=== PATIENT | female | born 1940 | race Caucasian/White ===

== ENCOUNTER 2017-11-09 15:36 | Inpatient (IN) | payer MEDICARE ==
[2017-11-09] MEDS ORDERED: HYDROmorphone 1 MG/ML 1 ML SYRINGE IVP PRN (21:29)
[2017-11-09] MEDS ORDERED: TEMAZEPAM 15 MG CAP PO PRN (21:29)
[2017-11-09] MEDS ORDERED: HYDROcodone/APAP 5-325MG 1 EACH TAB PO PRN (21:29)
[2017-11-09] MEDS ORDERED: ALPRAZolam 0.25 MG TAB PO PRN (21:29)
--- NOTE | 2017-11-09 21:51 | XR ---
EXAMINATION TYPE: XR chest 1V portable DATE OF EXAM: 11/09/2017 COMPARISON: NONE HISTORY: Heart failure short of breath TECHNIQUE: Single frontal view of the chest is obtained. FINDINGS: There is no heart failure nor confluent pneumonic infiltrate. There is slight coarsening o f interstitial markings. There are chest leads. There is no sign of pleural effusion. IMPRESSION: Mild fibrotic changes. No heart failure.
[2017-11-09] MEDS: ASPIRIN 81 MG PO SCH (22:09)
[2017-11-09] MEDS ORDERED: ACETAMINOPHEN TAB 325 MG TAB PO PRN (22:12)
[2017-11-09] MEDS ORDERED: ACETAMINOPHEN TAB 325 MG TAB PO STA (22:12)
[2017-11-09 22:50] LABS: Basophils % (A) 0 %; Eosinophils # (A) 0.1 k/uL (0-0.7); Eosinophils % (A) 1 %; HCT 44.9 % (34.0-46.0); HGB 14.9 gm/dL (11.4-16.0); Lymphocytes # (A) 0.8 k/uL (1.0-4.8); Lymphocytes % (A) 10 %; MCH 29.7 pg (25.0-35.0); MCHC 33.2 g/dL (31.0-37.0); MCV 89.3 fL (80.0-100.0); Mean Platelet Volume 7.3; Monocytes # (A) 0.4 k/uL (0-1.0); Monocytes % (A) 4 %; Neutrophils % (A) 84 %; Platelet Count 240 k/uL (150-450); RBC 5.03 m/uL (3.80-5.40); RDW 12.8 % (11.5-15.5); WBC 8.3 k/uL (3.8-10.6)
[2017-11-09 23:06] LABS: ALT 22 U/L (9-52); AST 23 U/L (14-36); Albumin 3.9 g/dL (3.5-5.0); Alkaline Phosphatase 60 U/L (38-126); Anion Gap 12 mmol/L; Blood Urea Nitrogen 15 mg/dL (7-17); Calcium 9.2 mg/dL (8.4-10.2); Carbon Dioxide 21 mmol/L (22-30); Chloride 106 mmol/L (98-107); Glucose 176 mg/dL (74-99); Potassium 3.9 mmol/L (3.5-5.1); Sodium 139 mmol/L (137-145); Total Bilirubin 0.6 mg/dL (0.2-1.3); Total Protein 6.9 g/dL (6.3-8.2)
[2017-11-09] MEDS ORDERED: ENOXAPARIN 80 MG/0.8 ML SYRINGE SQ STA (23:48)
[2017-11-09] MEDS ORDERED: METOPROLOL TARTRATE 50 MG TAB PO STA (23:50)
[2017-11-09] MEDS ORDERED: DILTIAZEM DRIP BOLUS FROM BAG 1 MG SOLN IV ONE (23:51)
[2017-11-10] MEDS: SODIUM CHLORIDE 0.9% 1,000 ML IV SCH ×4 (00:13→20:04)
[2017-11-10] MEDS: DILTIAZEM 50 MG in SODIUM CHLORIDE 0.9% 40 ML IV SCH ×4 (00:28→17:56)
[2017-11-10 06:40] LABS: Basophils % (A) 0 %; Eosinophils # (A) 0.1 k/uL (0-0.7); Eosinophils % (A) 1 %; HCT 41.5 % (34.0-46.0); HGB 13.6 gm/dL (11.4-16.0); Lymphocytes # (A) 2.1 k/uL (1.0-4.8); Lymphocytes % (A) 26 %; MCH 29.1 pg (25.0-35.0); MCHC 32.9 g/dL (31.0-37.0); MCV 88.6 fL (80.0-100.0); Mean Platelet Volume 6.8; Monocytes # (A) 0.7 k/uL (0-1.0); Monocytes % (A) 8 %; Neutrophils # (A) 5.2 k/uL (1.3-7.7); Neutrophils % (A) 63 %; Platelet Count 237 k/uL (150-450); RBC 4.69 m/uL (3.80-5.40); RDW 12.8 % (11.5-15.5); WBC 8.3 k/uL (3.8-10.6)
[2017-11-10] MEDS: PANTOPRAZOLE 40 MG TABLET PO SCH (06:42)
[2017-11-10] MEDS: ASPIRIN 81 MG PO SCH (06:42)
[2017-11-10 06:49] LABS: Potassium 3.8 mmol/L (3.5-5.1)
[2017-11-10] MEDS ORDERED: METOPROLOL TARTRATE 25 MG TAB PO SCH (09:00)
[2017-11-10] MEDS ORDERED: NITROGLYCERIN SL TABS 0.4 MG TAB SUBLINGUAL PRN ×2 (10:14→12:33)
[2017-11-10] MEDS ORDERED: ATORVASTATIN 80 MG TAB PO STA (10:14)
[2017-11-10] MEDS ORDERED: ASPIRIN 325 MG TAB PO STA (10:14)
[2017-11-10] MEDS ORDERED: ALPRAZolam 0.5 MG TAB PO PRN (10:14)
[2017-11-10] MEDS ORDERED: SODIUM CHLORIDE 0.9% 1,000 ML in EMPTY BAG 1 BAG IV ONE (10:14)
[2017-11-10] MEDS ORDERED: VERAPAMIL 2.5 MG/ML 2 ML AMP ONE (11:15)
[2017-11-10] MEDS ORDERED: diphenhydrAMINE 50 MG/ML 1 ML VIAL ONE (11:15)
[2017-11-10] MEDS ORDERED: MIDAZOLAM 2 MG/2 ML VIAL ONE (11:15)
[2017-11-10] MEDS ORDERED: LIDOCAINE 1% INJ 10MG/ML (20 ML MDV) ONE (11:15)
[2017-11-10] MEDS ORDERED: IV FLUID CONTINUATION 1,000 ML IV ONE (11:20)
[2017-11-10] MEDS ORDERED: HEPARIN SODIUM 1,000 UN/ML (10ML VL) ONE (11:23)
[2017-11-10] MEDS ORDERED: diphenhydrAMINE 50 MG/ML 1 ML VIAL IVP ONE (11:25)
[2017-11-10] MEDS ORDERED: LIDOCAINE 1% INJ 10MG/ML (10 ML MDV) SQ ONE (11:28)
[2017-11-10] MEDS ORDERED: MIDAZOLAM 2 MG/2 ML VIAL IVP ONE (11:28)
[2017-11-10] MEDS ORDERED: SODIUM CHLORIDE 0.9% 500 ML IV ONE (11:35)
[2017-11-10] MEDS: VERAPAMIL SYRINGE (5 MG/10 ML) INTRAARTER ONE ×2 (11:35→12:18)
[2017-11-10] MEDS: HEPARIN SODIUM 1,000 UN/ML (10ML VL) IV ONE ×2 (11:45→11:58)
[2017-11-10] MEDS ORDERED: NITROGLYCERIN 1000MCG/10ML SYRINGE INTRACORON ONE (11:48)
[2017-11-10] MEDS ORDERED: ADENOSINE 90 MG in SODIUM CHLORIDE 0.9% 60 ML IVP ONE (11:48)
[2017-11-10] MEDS ORDERED: IOPAMIDOL-250 100ML BTL INTRAARTER ONE (12:12)
[2017-11-10] MEDS ORDERED: IOPAMIDOL-370 100ML BTL INJ ONE (12:13)
[2017-11-10] MEDS ORDERED: CLOPIDOGREL 75 MG TAB PO ONE ×2 (12:18)
[2017-11-10] MEDS ORDERED: CLOPIDOGREL 75 MG TAB ONE (12:18)
[2017-11-10] MEDS ORDERED: IOPAMIDOL-370 50ML BTL INJ ONE (12:22)
[2017-11-10] MEDS ORDERED: ZOLPIDEM 5 MG TAB PO PRN (12:33)
[2017-11-10] MEDS ORDERED: RX INFO: IV CONTRAST WAS GIVEN 1 EACH MISC MISCELLANE PRN (12:33)
[2017-11-10] MEDS ORDERED: MAG HYDROX/AL HYDROX/SIMETH 30 ML CUP PO PRN (12:33)
[2017-11-10] MEDS ORDERED: ATROPINE SULFATE 0.1 MG/ML 10ML SYRINGE IV PRN (12:33)
--- NOTE | 2017-11-10 12:49 | PTCA ---
PERCUTANEOUSTRANS CORORONARY ANGIOGRAPHY DATE OF SERVICE: 11/10/2017 PROCEDURE: 1. Fractional flow reserve assessment of two lesions in mid LAD. 2. PTCA and stenting of two lesions in mid LAD with a drug-eluting stents. PERFORMED BY: Dr. Gayathri Potts. ANESTHESIA: Moderate conscious sedation time was 56 minutes. CLINICAL INFORMATION: Mrs. Chel Red is a 77-year-old lady with chronic atrial fibrillation, was seen and evaluated by Dr. Cooper at [facility] and was brought in for a FFR assessment because of two tandem lesions in the LAD. Stress test revealed anteroapical reversible defect suggestive of ischemia. However, the lesions were borderline on angiography. I reviewed the images and I also thought circumflex had about a 40% to 50% lesion as well. She was advised FFR and if indicated, would proceed with PCI. PROCEDURE NOTE: Under local anesthesia and strict aseptic precautions, a 6-Romansh introducer was placed in the right radial artery. Micropuncture needle technique was used. I used a JL3.4 guide catheter to cannulate the left coronary artery. There was extreme tortuosity in the brachial artery, but I was able to secure a decent guide support. A Verrata wire was used to cross the lesion in the LAD. There were two lesions in the mid LAD, one was before and one was after a diagonal branch. IFR initially revealed about 0.89 and FFR was 0.80 and 0.81. These were borderline numbers. However, the distal lesion was quite hazy and angiographically looked at least 70%. In view of the haziness of the lesion, angiographic unstable appearance and because of anteroapical reversible defect on the stress test and a borderline, if not convincing FFR/IFR measurements, I he made the decision to proceed with intervention. I discussed with the patient the findings and the situation and proceeded to perform PCI. The same wire was used. Without predilatation, a 12 mm long 2.5 caliber stent was deployed in the distal lesion and the same size, 2.5 caliber 12 mm Xience stent in the proximal portion. Excellent angiographic result without complication was achieved. Patient received a total of 7,500 units of heparin and she had already received Lovenox yesterday. She also received 600 mg of Plavix. The sheath was taken out and TR band applied as per protocol and patient was sent to the room in a stable condition. Excellent angiographic result without complication was achieved. Findings were reviewed with the patient and results were reviewed with the patient, but I could not reach any family members. DELMIS / JOSHUA: [id number] /
--- NOTE | 2017-11-10 14:00 | ECHOF ---
Referral Reason:cad MEASUREMENTS -------- HEIGHT: 167.6 cm WEIGHT: 83.5 kg BP: 111/58 RVIDd: 3.3 cm (< 3.3) IVSd: 1.4 cm (0.6 - 1.1) LVIDd: 4.2 cm (3.9 - 5.3) LVPWd: 1.4 cm (0.6 - 1.1) IVSs: 1.5 cm LVIDs: 3.4 cm LVPWs: 1.6 cm LA Diam: 4.3 cm (2.7 - 3.8) LAESV Index (A-L): 43.23 ml/m Ao Diam: 3.5 cm (2.0 - 3.7) AV Cusp: 1.8 cm (1.5 - 2.6) MV EXCURSION: 13.275 mm (> 18.000) MV EF SLOPE: 59 mm/s (70 - 150) EPSS: 0.4 cm RAP: 5.00 mmHg RVSP: 25.15 mmHg FINDINGS -------- Atrial fibrillation. This was a technically good study. The left ventricular size is normal. There is moderate concentric left ventricular hypertrophy. O verall left ventricular systolic function is normal with, an EF between 55 - 60 %. The right ventricle is mildly enlarged. LA is severely dilated >40 ml/m2 The right atrium is normal in size. There is mild aortic valve sclerosis. There is mild aortic regurgitation. The mitral valve leaflets are mildly thickened. Mild mitral annular calcification present. Mild m itral regurgitation is present. Mild tricuspid regurgitation present. Right ventricular systolic pressure is normal at < 35 mmHg. The aortic root size is normal. Normal inferior vena cava with normal inspiratory collapse consistent with estimated right atrial pre ssure of 5 mmHg. There is no pericardial effusion. CONCLUSIONS -------- 1. Atrial fibrillation. 2. This was a technically good study. 3. The left ventricular size is normal. 4. There is moderate concentric left ventricular hypertrophy. 5. Overall left ventricular systolic function is normal with, an EF between 55 - 60 %. 6. The right ventricle is mildly enlarged. 7. LA is severely dilated >40 ml/m2 8. The right atrium is normal in size. 9. There is mild aortic valve sclerosis. 10. There is mild aortic regurgitation. 11. The mitral valve leaflets are mildly thickened. 12. Mild mitral annular calcification present. 13. Mild mitral regurgitation is present. 14. Mild tricuspid regurgitation present. 15. Right ventricular systolic pressure is normal at < 35 mmHg. 16. The aortic root size is normal. 17. Normal inferior vena cava with normal inspiratory collapse consistent with estimated right atrial pressure of 5 mmHg. 18. There is no pericardial effusion. MILL CONTROLLER: Beverley Joya RDCS
[2017-11-10 14:12] VITALS: BMI 29.7
[2017-11-10] MEDS: METOPROLOL TARTRATE 25 MG TAB PO SCH ×2 (16:55→21:46)
[2017-11-10] MEDS ORDERED: ATORVASTATIN 80 MG TAB PO SCH (21:00)
--- NOTE | 2017-11-10 22:57 | P.HPIM ---
History of Present Illness H&P Date: 11/10/17 Chief Complaint: Chest pressure Patient is a 77-year-old female with a past medical history of hypertension, osteoarthritis and is undergoing preoperative evaluation for elective total knee arthroplasty. Patient did have stress test done on 11/01/2017 was abnormal and patient had cardiac catheterization on 11/09/2017 at [facility]. After the stress test patient was told to come back to the hospital if she developed chest pain. Patient says that day before yesterday patient had left-sided chest pain radiating to the left arm associated with some nausea and sweating. Patient initially presented to [facility] that she underwent cardiac catheterization. Patient was subsequently transferred to [facility] for PCI. Patient had cath today and stent 2 were placed. Currently patient denied any complaints of chest pain or shortness of breath. No nausea vomiting or abdominal pain no fever no chills. No headache or dizziness or lightheadedness. Review of Systems Constitutional: Patient denies any fever or chills . No generalized weakness or weight loss. Abdomen: Patient denied nausea vomiting and diarrhea and abdominal pain. Cardiovascular: Patient denies any chest pain or short of breath no palpitations. Respiratory: patient denied any cough is from production. No shortness of breath Neurologic: Patient denied any numbness or tingling headache. Musculoskeletal: Patient denies any complaints of joint swelling or deformity. Skin: Negative Psychiatric: Negative Endocrine: No heat or cold intolerance. No recent weight gain. Genitourinary: No dysuria or hematuria. All other 14 point ROS negative except the above Past Medical History Past Medical History: Atrial Fibrillation, Hypertension, Osteoarthritis (OA) Additional Past Medical History / Comment(s): stress test 11/01/17, past broken lt hip has plate/screws History of Any Multi-Drug Resistant Organisms: None Reported Past Surgical History: Appendectomy, Hernia Repair, Orthopedic Surgery Additional Past Surgical History / Comment(s): 11/09/17 heart cath at [facility] .abd hernia, lt hip sx pt has plate/screws. Past Anesthesia/Blood Transfusion Reactions: No Reported Reaction Additional Past Anesthesia/Blood Transfusion Reaction / Comment(s): clausterphobia Smoking Status: Never smoker - Past Family History Mother Family Medical History: Coronary Artery Disease (CAD) Additional Family Medical History / Comment(s): "heart problems' Father Family Medical History: Cancer Additional Family Medical History / Comment(s): colon ca Medications and Allergies Home Medications Medication Instructions Recorded Confirmed Type Ibuprofen [Motrin Ib] 800 mg PO TID PRN 11/09/17 11/09/17 History Metoprolol Tartrate [Lopressor] 25 mg PO BID 11/09/17 11/09/17 History Allergies Allergy/AdvReac Type Severity Reaction Status Date / Time No Known Allergies Allergy Verified 11/09/17 19:21 Physical Exam Vitals: Vital Signs Temp Pulse Resp BP Pulse Ox 11/10/17 08:00 64 11/10/17 07:50 97.1 F L 64 16 131/92 98 11/10/17 04:00 98.8 F 86 16 111/58 97 11/10/17 00:00 97.8 F 85 16 110/55 94 L 11/09/17 20:00 97.9 F 103 H 16 136/88 94 L Intake and Output 11/09/17 11/10/17 11/10/17 22:59 06:59 14:59 Intake Total 620 100 200 Balance 620 100 200 Intake: Intake, IV Titration 100 200 Amount Sodium Chloride 0.9% 1, 100 200 000 ml @ 100 mls/hr IV . Q10H [facility] Rx#:[id number] Oral 620 Other: Voiding Method Toilet Toilet Weight 84 kg 83.7 kg PHYSICAL EXAMINATION: Patient is lying in the bed comfortably, no acute distress, awake alert and oriented.. HEENT: Normocephalic. Neck is supple. Pupils reactive. Nostrils clear. Oral cavity is moist. Ears reveal no drainage. Neck reveals no JVD, carotid bruits, or thyromegaly. CHEST EXAMINATION: Trachea is central. Symmetrical expansion. Lung ma clear to auscultation and percussion. CARDIAC: Normal S1, S2 with no gallops. No murmurs ABDOMEN: Soft. Bowel sounds normal. No organomegaly. No abdominal bruits. Extremities: reveal no edema. No clubbing or cyanosis Neurologically awake, alert, oriented x3 with well-coordinated movements. No focal deficits noted Skin: No rash or skin lesions. Psychiatric: Coperative. Nonsuicidal Musculoskeletal: No joint swelling or deformity. Normal range of motion. Results CBC & Chem 7: 11/10/17 06:21 11/10/17 06:21 Labs: Abnormal Lab Results - Last 24 Hours (Table) 11/09/17 11/09/17 11/10/17 Range/Units 22:15 22:15 06:21 Lymphocytes # 0.8 L (1.0-4.8) k/uL Chloride 110 H (98-107) mmol/L Carbon Dioxide 21 L (22-30) mmol/L Glucose 176 H 102 H (74-99) mg/dL Thrombosis Risk Factor Assmnt - DVT/VTE Prophylaxis DVT/VTE Prophylaxis: Pharmacologic Prophylaxis ordered - Choose All That Apply Any of the Below Risk Factors Present?: Yes Each Factor Represents 1 point: Obesity (BMI >25) Each Risk Factor Represents 3 Points: Age 75 years or older Other congenital or acquired thrombophilia - If yes, enter type in comment: No Thrombosis Risk Factor Assessment Total Risk Factor Score: 4 Thrombosis Risk Factor Assessment Level: Moderate Risk Assessment and Plan Assessment: Unstable angina. Status post cardiac Catheterization stent placement Recent abnormal stress test on 11/01/2017 Osteoarthritis Hypertension Family history of coronary artery disease DVT prophylaxis Plan: Patient will be continued on aspirin statins Plavix and beta blockers. Continue the telemetry monitoring and cardiology is on board. Further recommendations based on the clinical course. Time with Patient: Greater than 30
[2017-11-11] MEDS: DILTIAZEM 50 MG in SODIUM CHLORIDE 0.9% 40 ML IV SCH ×2 (02:48→11:46)
[2017-11-11] MEDS: SODIUM CHLORIDE 0.9% 1,000 ML IV SCH ×3 (03:56→07:08)
[2017-11-11 06:44] LABS: Basophils % (A) 0 %; Eosinophils # (A) 0.1 k/uL (0-0.7); Eosinophils % (A) 1 %; HCT 37.7 % (34.0-46.0); HGB 12.5 gm/dL (11.4-16.0); Lymphocytes # (A) 1.7 k/uL (1.0-4.8); Lymphocytes % (A) 23 %; MCH 29.5 pg (25.0-35.0); MCHC 33.1 g/dL (31.0-37.0); Mean Platelet Volume 6.8; Monocytes # (A) 0.6 k/uL (0-1.0); Monocytes % (A) 9 %; Neutrophils # (A) 4.6 k/uL (1.3-7.7); Neutrophils % (A) 64 %; Platelet Count 212 k/uL (150-450); RBC 4.24 m/uL (3.80-5.40); RDW 12.6 % (11.5-15.5); WBC 7.1 k/uL (3.8-10.6)
[2017-11-11] MEDS: PANTOPRAZOLE 40 MG TABLET PO SCH (06:59)
[2017-11-11 07:00] LABS: Anion Gap 3 mmol/L; Blood Urea Nitrogen 12 mg/dL (7-17); Calcium 8.6 mg/dL (8.4-10.2); Carbon Dioxide 24 mmol/L (22-30); Chloride 112 mmol/L (98-107); Glucose 95 mg/dL (74-99); Potassium 3.6 mmol/L (3.5-5.1); Sodium 139 mmol/L (137-145)
[2017-11-11] MEDS: METOPROLOL TARTRATE 25 MG TAB PO SCH (08:35)
[2017-11-11] MEDS: ASPIRIN 81 MG PO SCH (08:35)
[2017-11-11] MEDS ORDERED: LOSARTAN 50 MG TAB PO SCH (09:00)
[2017-11-11 10:20] VITALS: RESP 18
[2017-11-11] MEDS ORDERED: CLOPIDOGREL 75 MG TAB PO SCH (12:35)
--- NOTE | 2017-11-11 13:02 | P.PN ---
Subjective Progress Note Date: 11/11/17 This is a 77-year-old female who was transferred here from [facility], after being evaluated there by Dr. Cooper. She underwent a cardiac catheterization and was brought here to undergo FFR assessment because of 2 lesions in the LAD. Patient did undergo FFR was subsequent stenting of the mid LAD. EKG this morning showed normal sinus rhythm with no changes from post-PCI. She denies any chest pain or difficulty in breathing. She's been up ambulating without any difficulty. Patient does have known history of atrial fibrillation as well, she was advised by Dr. Cooper to be discharged home on Plavix and aspirin, and 6 weeks he will start the patient on xarelto 15 mg daily along with the Plavix. An aspirin at that time will be discontinued. Objective - Vital Signs Vital signs: Vital Signs Temp 98.3 F 11/11/17 08:15 Pulse 88 11/11/17 08:15 Resp 18 11/11/17 08:15 BP 109/61 11/11/17 08:15 Pulse Ox 95 11/11/17 08:15 Intake & Output 11/10/17 11/11/17 11/11/17 18:59 06:59 18:59 Intake Total 946.4 120 1040 Balance 946.4 120 1040 Weight 83.7 kg 84.2 kg Intake: IV 386.4 Intake, IV Titration 200 800 Amount Sodium Chloride 0.9% 1, 200 800 000 ml @ 100 mls/hr IV . Q10H [facility] Rx#:[id number] Oral 360 120 240 Other: Voiding Method Toilet # Voids 1 1 - Exam PHYSICAL EXAMINATION: GENERAL: 77-year-old female in no acute distress at the time of my examination HEENT: Head is atraumatic, normocephalic. Pupils equal, round. Sclera anicteric. Conjunctiva are clear. Mucous membranes of the mouth are moist. Neck is supple. There is no elevated jugular venous pressure.] bruit is heard. HEART EXAMINATION: Heart S1 and S2 no murmur or gallop heard. CHEST EXAMINATION: Lungs are clear to auscultation and precussion. No chest wall tenderness is noted on palpation or with deep breathing. ABDOMEN: Soft, nontender. Bowel sounds are heard. No organomegaly noted. EXTREMITIES: 2+ peripheral pulses with no evidence of peripheral edema and no calf tenderness noted. Right radial site clean and dry, good distal pulse, significant ecchymosis found to the elbow area. Right groin is soft with no evidence of any hematoma. NEUROLOGIC patient is awake, alert and oriented ?-3. . - Labs CBC & Chem 7: 11/11/17 06:25 11/11/17 06:25 Labs: Abnormal Lab Results - Last 24 Hours (Table) 11/11/17 Range/Units 06:25 Chloride 112 H (98-107) mmol/L Assessment and Plan Plan: Assessment and plan #1 Status post angioplasty and stenting of the LAD #2 persistent atrial fibrillation #3 hyperlipidemia Plan From cardiology's perspective, patient may be able to be discharged home today. We'll discharge her home with Plavix 75 mg daily and aspirin, after 6 weeks the aspirin will be discontinued and patient will be continued on the Plavix and xarelto. She was also going home on Lipitor 80 mg daily, losartan, metoprolol and sublingual nitroglycerin. DNP note has been reviewed, I agree with a documented findings and plan of care. Patient was seen and examined.
[2017-11-11 14:53] VITALS: BP 138/73; PULSE 96; TEMP 97.7
== END 2017-11-11 18:17 | disposition home or self-care (01) | DRG 247 ==
LOC: 6SEL 18:47
PROVIDERS: ADMIT Internal Medicine; ATTEND Internal Medicine
PROC: 027035Z Dilation of Coronary Artery, One Artery with Two Drug-eluting Intraluminal Devices, Percutaneous Approach (ICD-10-PCS; principal; 2017-11-10 10:58)
PROC: 4A033BC Measurement of Arterial Pressure, Coronary, Percutaneous Approach (ICD-10-PCS; 2017-11-10 10:58)
DX: I25.110 Atherosclerotic heart disease of native coronary artery with unstable angina pectoris (principal); I48.1 Persistent atrial fibrillation; E78.5 Hyperlipidemia, unspecified; I10 Essential (primary) hypertension; I25.9 Chronic ischemic heart disease, unspecified; I48.2 Chronic atrial fibrillation; Z80.0 Family history of malignant neoplasm of digestive organs; Z82.49 Family history of ischemic heart disease and other diseases of the circulatory system; M19.90 Unspecified osteoarthritis, unspecified site; F40.240 Claustrophobia
CPT/HCPCS: 71045; 80048; 80053; 84484; 85025; 93306; 93571